=== PATIENT | female | born 1980 | race Caucasian/White ===

== ENCOUNTER 2018-08-02 15:23 | Emergency (ER) | payer OTHER ==
[~2018-08-02] VITALS: Ht 167.6 cm; Wt 99.8 kg
--- NOTE | 2018-08-02 15:29 | NUR ---
PT AMBULATED TO BED 05
[2018-08-02 15:31] VITALS: BP 157/92
--- NOTE | 2018-08-02 15:41 | NUR ---
PATIENT PRESENTS TO ED WITH C/O SUPRAPUBIC PAIN . PT STATES "IT'S IN MY LOWER STOMACH AREA AND THEN IT GOES DOWN TO MY PRIVATES" . DENIES N/V/D; SKIN IS PINK/WARM/DRY; AAOX4 WITH EVEN AND STEADY GAIT; LUNGS CLEAR BL; HR EVEN AND REGULAR; PT DENIES ANY FEVER, CP, SOB, OR COUGH AT THIS TIME; PATIENT STATES PAIN OF 10/10 AT THIS TIME; VSS; PATIENT POSITIONED FOR COMFORT; HOB ELEVATED; BEDRAILS UP X2; BED DOWN. ER MD MADE AWARE OF PT STATUS.
--- NOTE | 2018-08-02 15:49 | NUR ---
MD AT BEDSIDE FOR EVALUATION
[2018-08-02 16:13] VITALS: BP 157/92
--- NOTE | 2018-08-02 16:14 | NUR ---
Patient does not wish to proceed with medical care recommended by DR YUEN. Patient given information related to possible complications, up to and including , which could occur as a result of leaving hospital at this time. Patient verbalizes understanding of risks involved leaving against medical advice. Patient has signed AMA form.
== END 2018-08-02 16:14 | disposition left against medical advice (07) ==
LOC: MED 15:23
DX: R10.32 Left lower quadrant pain (principal); R10.31 Right lower quadrant pain; Z88.0 Allergy status to penicillin; Z88.8 Allergy status to other drugs, medicaments and biological substances; Z90.49 Acquired absence of other specified parts of digestive tract; Z98.84 Bariatric surgery status
CPT/HCPCS: 99281

== ENCOUNTER 2021-01-15 13:16 | Emergency (ER) | payer OTHER ==
[~2021-01-15] VITALS: Ht 170.2 cm; Wt 95.3 kg
[2021-01-15 13:21] VITALS: BP 180/76
--- NOTE | 2021-01-15 13:33 | NUR ---
40/F presents to ED with complaints of right ankle pain x2 days. Pt states she hit the side of her ankle on her bedframe. Pt also c/o pain to top of foot. CMS intact. No obvious deformity noted. Pt ambulating with steady gait, states the pain is worse when she walks.
[2021-01-15] MEDS ORDERED: IBUPROFEN 600 MG TAB PO ONE (13:35)
--- NOTE | 2021-01-15 13:44 | NUR ---
X-Ray at bedside.
[2021-01-15] MEDS ORDERED: IBUP-2213 PO (14:12)
--- NOTE | 2021-01-15 14:12 | NUR ---
applied teresita wrap to right ankle without any issues
== END 2021-01-15 14:21 | disposition home or self-care (01) ==
LOC: MED 13:16
DX: M25.571 Pain in right ankle and joints of right foot (principal); Z88.0 Allergy status to penicillin; Z88.8 Allergy status to other drugs, medicaments and biological substances; W22.03XA Walked into furniture, initial encounter; Y93.89 Activity, other specified; Y92.89 Other specified places as the place of occurrence of the external cause; Y99.8 Other external cause status
CPT/HCPCS: 73610; 99283